=== PATIENT | male | born 1965 | race Hispanic/Latino ===

== ENCOUNTER 2020-09-03 07:41 | Outpatient (CLI) | payer BC | END 2020-09-03 07:42 | disposition home or self-care (01) | LOC: SCSMRI 07:41 | PROVIDERS: ATTEND Family Medicine | DX: M50.10 Cervical disc disorder with radiculopathy, unspecified cervical region (principal) | CPT/HCPCS: 72141 ==

== ENCOUNTER 2020-10-28 16:51 | Outpatient (CLI) | payer BC ==
[2020-10-28 18:09] LABS: #Basophils 0.1 10x3/uL (0.0-0.2); #Eosinphils 0.1 10x3/uL (0.0-0.5); #Monocytes 0.5 10x3/uL (0.0-1.1); #Neutrophils 3.8 10x3/uL (1.5-8.4); %Basophils 1.4 % (0.0-2.0); %Eosinophils 0.9 % (0.0-6.0); %Lymphocytes 23.2 % (18.0-47.0); %Monocytes 8.3 % (0.0-10.0); %Neutrophils 65.8 % (40.0-75.0); Hemoglobin 15.1 g/dL (13.5-17.5); Mean Corpuscular HGB CONC 34.7 g/dL (32.0-36.0); Mean Corpuscular Hemoglobin 32.3 pg (27.0-33.0); Mean Corpuscular Volume 92.9 fl (81.2-95.1); Mean Platelet Volume 9.9 fl (7.4-10.4); Platelet Count 257 10x3/uL (150-450); RBC Distribution Width 12.4 % (11.5-14.5); Red Blood Cell (RBC) Count 4.68 10x6/uL (4.32-5.72); White Blood Cell (WBC) Count 5.7 10x3/uL (3.5-10.5)
[2020-10-28 18:17] LABS: Anion Gap 13 mmol/L (10-20); BUN (Urea Nitrogen) 19 mg/dL (8.4-25.7); Calc. Creatinine Clearance 0 mL/min (70-130); Calcium 9.9 mg/dL (7.8-10.44); Carbon Dioxide 26 mmol/L (22-29); Chloride 106 mmol/L (98-107); Glucose 106 mg/dL (70-105); Potassium 4.1 mmol/L (3.5-5.1); Sodium 141 mmol/L (136-145)
[2020-10-29 13:05] LABS: SARS-CoV-2 PCR by NAA Not Detected (NotDetected)
== END 2020-10-28 16:52 | disposition home or self-care (01) ==
LOC: LABBT 16:51
PROVIDERS: ATTEND Orthopaedic Surgery
DX: Z01.812 Encounter for preprocedural laboratory examination (principal); M75.102 Unspecified rotator cuff tear or rupture of left shoulder, not specified as traumatic; Z20.822 Contact with and (suspected) exposure to COVID-19
CPT/HCPCS: 80048; 85025; U0003; U0005

== ENCOUNTER 2023-02-02 08:28 | Outpatient (CLI) | payer BC, OTHER ==
[2023-02-02] MEDS ORDERED: Iopamidol 370 76% 100 ML VIAL ONE (09:33)
== END 2023-02-02 08:29 | disposition home or self-care (01) ==
LOC: BICCT 08:28
PROVIDERS: ATTEND Family Medicine
DX: R31.9 Hematuria, unspecified (principal); R10.30 Lower abdominal pain, unspecified
CPT/HCPCS: 74178; Q9967

== ENCOUNTER 2023-02-12 06:51 | Outpatient (CLI) | payer BC, OTHER | END 2023-02-12 06:52 | disposition home or self-care (01) | LOC: BICULT 06:51 | PROVIDERS: ATTEND Family Medicine | DX: N50.811 Right testicular pain (principal); N50.812 Left testicular pain | CPT/HCPCS: 76870; 93976 ==